=== PATIENT | male | born 1950 | race Caucasian/White ===

== ENCOUNTER 2021-02-19 12:57 | Inpatient (IN) | payer MEDICARE ==
[2021-02-19 17:21] VITALS: BMI 22.9
[2021-02-19] MEDS ORDERED: traMADol HCl 50 MG TAB PO PRN (17:34)
[2021-02-19] MEDS ORDERED: Nystatin Powder 15 GM BOT TOP PRN (18:02)
[2021-02-19] MEDS ORDERED: Ondansetron ODT 4 MG TAB PO PRN (18:52)
[2021-02-19] MEDS ORDERED: [UNRECOGNIZED DRUG - OTHER] PO PRN (18:55)
[2021-02-19] MEDS: SODIUM CHLORIDE 5% EA EYE SCH (22:15)
[2021-02-19] MEDS: Carvedilol 3.125 MG TAB PO SCH (22:15)
[2021-02-19] MEDS: Tamsulosin HCl 0.4 MG CAP PO SCH (22:15)
[2021-02-19] MEDS: [UNRECOGNIZED DRUG - OTHER] EA EYE SCH (22:15)
[2021-02-19] MEDS: Benzonatate 100 MG CAP PO PRN (22:17)
[2021-02-19] MEDS: tiZANidine HCl 4 MG TAB PO PRN (22:32)
[2021-02-20] MEDS: SODIUM CHLORIDE 5% EA EYE SCH ×4 (08:11→20:13)
[2021-02-20] MEDS: Carvedilol 3.125 MG TAB PO SCH ×2 (08:11→20:13)
[2021-02-20] MEDS: Losartan Potassium 50 MG TAB PO SCH (08:11)
[2021-02-20] MEDS: Multivit, Therapeutic 1 TAB PO SCH (08:11)
[2021-02-20] MEDS: [UNRECOGNIZED DRUG - OTHER] EA EYE SCH ×4 (08:11→20:13)
[2021-02-20] MEDS: predniSONE 5 MG TAB PO SCH (08:11)
[2021-02-20] MEDS: tiZANidine HCl 4 MG TAB PO PRN (08:27)
[2021-02-20 16:27] LABS: Hemoglobin 8.2 g/dL (14.0-18.0); Platelet Count 313 thou/uL (130-400)
[2021-02-20 16:38] LABS: Calc. Creatinine Clearance 93 mL/min (70-130)
[2021-02-20] MEDS ORDERED: Enoxaparin Sodium 40 MG/0.4 ML SYRINGE SC SCH (16:45)
[2021-02-20] MEDS: Acetaminophen 325 MG TAB PO PRN (17:08)
[2021-02-20] MEDS: Tamsulosin HCl 0.4 MG CAP PO SCH (20:13)
[2021-02-21] MEDS: predniSONE 5 MG TAB PO SCH (09:59)
[2021-02-21] MEDS: Losartan Potassium 50 MG TAB PO SCH (09:59)
[2021-02-21] MEDS: Enoxaparin Sodium 40 MG/0.4 ML SYRINGE SC SCH (09:59)
[2021-02-21] MEDS: Multivit, Therapeutic 1 TAB PO SCH (09:59)
[2021-02-21] MEDS: Carvedilol 3.125 MG TAB PO SCH ×2 (09:59→20:04)
[2021-02-21] MEDS: SODIUM CHLORIDE 5% EA EYE SCH ×4 (10:00→20:04)
[2021-02-21] MEDS: [UNRECOGNIZED DRUG - OTHER] EA EYE SCH ×4 (10:00→20:04)
[2021-02-21] MEDS: Albuterol 200 PUFF (6.7GM INHALER) INH PRN (16:22)
[2021-02-21] MEDS: Tamsulosin HCl 0.4 MG CAP PO SCH (20:04)
[2021-02-21] MEDS: Benzonatate 100 MG CAP PO PRN (20:42)
[2021-02-21] MEDS: Acetaminophen 325 MG TAB PO PRN (20:42)
[2021-02-22] MEDS: Multivit, Therapeutic 1 TAB PO SCH (09:14)
[2021-02-22] MEDS: Losartan Potassium 50 MG TAB PO SCH (09:14)
[2021-02-22] MEDS: Carvedilol 3.125 MG TAB PO SCH ×2 (09:14→20:27)
[2021-02-22] MEDS: Albuterol 200 PUFF (6.7GM INHALER) INH PRN ×2 (09:14→18:21)
[2021-02-22] MEDS: Enoxaparin Sodium 40 MG/0.4 ML SYRINGE SC SCH (09:15)
[2021-02-22] MEDS: [UNRECOGNIZED DRUG - OTHER] EA EYE SCH ×4 (09:15→20:30)
[2021-02-22] MEDS: SODIUM CHLORIDE 5% EA EYE SCH ×4 (09:15→20:30)
[2021-02-22] MEDS: predniSONE 5 MG TAB PO SCH (09:15)
[2021-02-22] MEDS: Tamsulosin HCl 0.4 MG CAP PO SCH (20:27)
[2021-02-22] MEDS: Acetaminophen 325 MG TAB PO PRN (20:27)
[2021-02-22] MEDS: Benzonatate 100 MG CAP PO PRN (20:27)
[2021-02-23 05:10] LABS: Calc. Creatinine Clearance 95 mL/min (70-130)
[2021-02-23 06:38] LABS: Eosinophils 5 % (0-10); Hemoglobin 8.3 g/dL (14.0-18.0); Lymphocytes 36 % (21-51); MDiff Complete? YES; Mean Corpuscular HGB CONC 32.6 g/dL (32.0-36.0); Mean Corpuscular Hemoglobin 29.7 pg (27.0-31.0); Mean Platelet Volume 5.9 fL (7.4-10.4); Monocytes 15 % (0-10); Neutrophil 43 % (42-75); Platelet Count 353 thou/uL (130-400); RBC Distribution Width 13.2 % (11.5-14.5); Red Blood Cell (RBC) Count 2.81 mill/uL (4.70-6.10); White Blood Cell (WBC) Count 3.9 thou/uL (4.8-10.8)
[2021-02-23] MEDS: Carvedilol 3.125 MG TAB PO SCH ×2 (10:06→20:42)
[2021-02-23] MEDS: Albuterol 200 PUFF (6.7GM INHALER) INH PRN (10:06)
[2021-02-23] MEDS: Losartan Potassium 50 MG TAB PO SCH (10:06)
[2021-02-23] MEDS: predniSONE 5 MG TAB PO SCH (10:06)
[2021-02-23] MEDS: [UNRECOGNIZED DRUG - OTHER] EA EYE SCH ×4 (10:07→20:43)
[2021-02-23] MEDS: SODIUM CHLORIDE 5% EA EYE SCH ×4 (10:07→20:43)
[2021-02-23] MEDS: Enoxaparin Sodium 40 MG/0.4 ML SYRINGE SC SCH (10:11)
[2021-02-23] MEDS: Multivit, Therapeutic 1 TAB PO SCH (10:11)
[2021-02-23] MEDS: Acetaminophen 325 MG TAB PO PRN (17:51)
[2021-02-23] MEDS: Tamsulosin HCl 0.4 MG CAP PO SCH (20:42)
[2021-02-24] MEDS: Acetaminophen 325 MG TAB PO PRN (03:51)
[2021-02-24] MEDS: Enoxaparin Sodium 40 MG/0.4 ML SYRINGE SC SCH (09:06)
[2021-02-24] MEDS: Losartan Potassium 50 MG TAB PO SCH (09:07)
[2021-02-24] MEDS: Carvedilol 3.125 MG TAB PO SCH ×2 (09:07→20:56)
[2021-02-24] MEDS: predniSONE 5 MG TAB PO SCH (09:08)
[2021-02-24] MEDS: Multivit, Therapeutic 1 TAB PO SCH (09:08)
[2021-02-24] MEDS: Albuterol 200 PUFF (6.7GM INHALER) INH PRN (09:10)
[2021-02-24] MEDS: [UNRECOGNIZED DRUG - OTHER] EA EYE SCH ×4 (09:11→20:56)
[2021-02-24] MEDS: SODIUM CHLORIDE 5% EA EYE SCH ×4 (09:11→20:56)
[2021-02-24] MEDS: Tamsulosin HCl 0.4 MG CAP PO SCH (20:57)
[2021-02-25] MEDS: Carvedilol 3.125 MG TAB PO SCH ×2 (09:50→21:05)
[2021-02-25] MEDS: SODIUM CHLORIDE 5% EA EYE SCH ×4 (09:50→21:04)
[2021-02-25] MEDS: predniSONE 5 MG TAB PO SCH (09:50)
[2021-02-25] MEDS: Enoxaparin Sodium 40 MG/0.4 ML SYRINGE SC SCH (09:50)
[2021-02-25] MEDS: Multivit, Therapeutic 1 TAB PO SCH (09:50)
[2021-02-25] MEDS: [UNRECOGNIZED DRUG - OTHER] EA EYE SCH ×4 (09:50→21:04)
[2021-02-25] MEDS: Losartan Potassium 50 MG TAB PO SCH (09:50)
[2021-02-25] MEDS: Tamsulosin HCl 0.4 MG CAP PO SCH (21:04)
[2021-02-26 05:04] LABS: Hemoglobin 8.6 g/dL (14.0-18.0); Platelet Count 389 thou/uL (130-400)
[2021-02-26 05:06] LABS: Calc. Creatinine Clearance 98 mL/min (70-130)
[2021-02-26] MEDS: Enoxaparin Sodium 40 MG/0.4 ML SYRINGE SC SCH (09:08)
[2021-02-26] MEDS: predniSONE 5 MG TAB PO SCH (09:08)
[2021-02-26] MEDS: Albuterol 200 PUFF (6.7GM INHALER) INH PRN (09:08)
[2021-02-26] MEDS: SODIUM CHLORIDE 5% EA EYE SCH ×4 (09:09→20:47)
[2021-02-26] MEDS: Losartan Potassium 50 MG TAB PO SCH (09:09)
[2021-02-26] MEDS: Carvedilol 3.125 MG TAB PO SCH ×2 (09:09→20:47)
[2021-02-26] MEDS: [UNRECOGNIZED DRUG - OTHER] EA EYE SCH ×4 (09:09→20:47)
[2021-02-26] MEDS: Multivit, Therapeutic 1 TAB PO SCH (09:09)
[2021-02-26] MEDS: Tamsulosin HCl 0.4 MG CAP PO SCH (20:47)
[2021-02-26] MEDS: Acetaminophen 325 MG TAB PO PRN (20:56)
[2021-02-27] MEDS: predniSONE 5 MG TAB PO SCH (09:21)
[2021-02-27] MEDS: Multivit, Therapeutic 1 TAB PO SCH (09:21)
[2021-02-27] MEDS: Enoxaparin Sodium 40 MG/0.4 ML SYRINGE SC SCH (09:22)
[2021-02-27] MEDS: Losartan Potassium 50 MG TAB PO SCH (09:22)
[2021-02-27] MEDS: SODIUM CHLORIDE 5% EA EYE SCH ×4 (09:23→20:30)
[2021-02-27] MEDS: [UNRECOGNIZED DRUG - OTHER] EA EYE SCH ×4 (09:23→20:30)
[2021-02-27] MEDS: Carvedilol 3.125 MG TAB PO SCH ×2 (09:23→20:30)
[2021-02-27] MEDS: Albuterol 200 PUFF (6.7GM INHALER) INH PRN ×2 (09:24→17:07)
[2021-02-27] MEDS: Tamsulosin HCl 0.4 MG CAP PO SCH (20:30)
[2021-02-27] MEDS: Acetaminophen 325 MG TAB PO PRN (20:30)
[2021-02-28] MEDS: Losartan Potassium 50 MG TAB PO SCH (09:32)
[2021-02-28] MEDS: Carvedilol 3.125 MG TAB PO SCH ×2 (09:32→20:51)
[2021-02-28] MEDS: predniSONE 5 MG TAB PO SCH (09:32)
[2021-02-28] MEDS: Multivit, Therapeutic 1 TAB PO SCH (09:32)
[2021-02-28] MEDS: Enoxaparin Sodium 40 MG/0.4 ML SYRINGE SC SCH (09:32)
[2021-02-28] MEDS: [UNRECOGNIZED DRUG - OTHER] EA EYE SCH ×4 (09:33→20:51)
[2021-02-28] MEDS: SODIUM CHLORIDE 5% EA EYE SCH ×4 (09:33→20:51)
[2021-02-28] MEDS: Albuterol 200 PUFF (6.7GM INHALER) INH PRN (09:33)
[2021-02-28] MEDS: tiZANidine HCl 4 MG TAB PO PRN ×2 (12:22→19:18)
[2021-02-28] MEDS: Tamsulosin HCl 0.4 MG CAP PO SCH (20:51)
[2021-02-28] MEDS: Acetaminophen 325 MG TAB PO PRN (20:57)
[2021-03-01 05:56] LABS: Hemoglobin 8.5 g/dL (14.0-18.0); Mean Corpuscular Hemoglobin 29.1 pg (27.0-31.0); Mean Corpuscular Volume 88.4 fL (78.0-98.0); Mean Platelet Volume 5.7 fL (7.4-10.4); Platelet Count 363 thou/uL (130-400); RBC Distribution Width 13.2 % (11.5-14.5); Red Blood Cell (RBC) Count 2.91 mill/uL (4.70-6.10); White Blood Cell (WBC) Count 2.9 thou/uL (4.8-10.8)
[2021-03-01 05:59] LABS: ALT (SGPT) 17 U/L (8-55); AST (SGOT) 13 U/L (5-34); Alkaline Phosphatase 77 U/L (40-110); Anion Gap 13 mmol/L (10-20); BUN (Urea Nitrogen) 12 mg/dL (8.4-25.7); Bilirubin, Total Less than 0.2 mg/dL (0.2-1.2); Calc. Creatinine Clearance 95 mL/min (70-130); Calcium 8.8 mg/dL (7.8-10.44); Carbon Dioxide 24 mmol/L (23-31); Chloride 106 mmol/L (98-107); Globulin 3.6 g/dL (2.4-3.5); Glucose 123 mg/dL (83-110); Potassium 3.8 mmol/L (3.5-5.1); Protein, Total 6.6 g/dL (5.8-8.1); Sodium 139 mmol/L (136-145)
[2021-03-01 06:29] LABS: Band 1 % (5-11); Eosinophils 1 % (0-10); Lymphocytes 41 % (21-51); MDiff Complete? YES; Monocytes 21 % (0-10); Neutrophil 36 % (42-75); Platelet Morphology Comment Appears Adequate; RBC Morphology Normal
[2021-03-01] MEDS: Enoxaparin Sodium 40 MG/0.4 ML SYRINGE SC SCH (09:04)
[2021-03-01] MEDS: Multivit, Therapeutic 1 TAB PO SCH (09:05)
[2021-03-01] MEDS: predniSONE 5 MG TAB PO SCH (09:05)
[2021-03-01] MEDS: Carvedilol 3.125 MG TAB PO SCH ×2 (09:05→21:52)
[2021-03-01] MEDS: SODIUM CHLORIDE 5% EA EYE SCH ×4 (09:05→21:52)
[2021-03-01] MEDS: Losartan Potassium 50 MG TAB PO SCH (09:05)
[2021-03-01] MEDS: [UNRECOGNIZED DRUG - OTHER] EA EYE SCH ×4 (09:05→21:52)
[2021-03-01] MEDS: Albuterol 200 PUFF (6.7GM INHALER) INH PRN (09:06)
[2021-03-01] MEDS: Acetaminophen 325 MG TAB PO PRN (09:14)
[2021-03-01 11:33] LABS: Hemoglobin A1c 5.5 % (4.0-6.0)
[2021-03-01 17:53] LABS: Platelet Count 452 thou/uL (130-400)
[2021-03-01] MEDS: Tamsulosin HCl 0.4 MG CAP PO SCH (21:52)
[2021-03-02] MEDS: Enoxaparin Sodium 40 MG/0.4 ML SYRINGE SC SCH (08:26)
[2021-03-02] MEDS: Losartan Potassium 50 MG TAB PO SCH (08:26)
[2021-03-02] MEDS: Carvedilol 3.125 MG TAB PO SCH ×2 (08:27→20:52)
[2021-03-02] MEDS: predniSONE 5 MG TAB PO SCH (08:27)
[2021-03-02] MEDS: Multivit, Therapeutic 1 TAB PO SCH (08:27)
[2021-03-02] MEDS: [UNRECOGNIZED DRUG - OTHER] EA EYE SCH ×4 (08:30→20:52)
[2021-03-02] MEDS: SODIUM CHLORIDE 5% EA EYE SCH ×4 (08:30→20:52)
[2021-03-02] MEDS: Albuterol 200 PUFF (6.7GM INHALER) INH PRN (08:30)
[2021-03-02] MEDS ORDERED: traMADol HCl 50 MG TAB PO PRN (17:50)
[2021-03-02] MEDS: Tamsulosin HCl 0.4 MG CAP PO SCH (20:52)
[2021-03-03] MEDS: [UNRECOGNIZED DRUG - OTHER] EA EYE SCH ×4 (09:19→21:22)
[2021-03-03] MEDS: Losartan Potassium 50 MG TAB PO SCH (09:19)
[2021-03-03] MEDS: SODIUM CHLORIDE 5% EA EYE SCH ×4 (09:19→21:22)
[2021-03-03] MEDS: Multivit, Therapeutic 1 TAB PO SCH (09:20)
[2021-03-03] MEDS: Carvedilol 3.125 MG TAB PO SCH ×2 (09:20→21:22)
[2021-03-03] MEDS: predniSONE 5 MG TAB PO SCH (09:20)
[2021-03-03] MEDS: Albuterol 200 PUFF (6.7GM INHALER) INH PRN (09:21)
[2021-03-03] MEDS: Enoxaparin Sodium 40 MG/0.4 ML SYRINGE SC SCH (09:21)
[2021-03-03] MEDS: Acetaminophen 325 MG TAB PO PRN (12:33)
[2021-03-03] MEDS: Tamsulosin HCl 0.4 MG CAP PO SCH (21:21)
[2021-03-04 05:05] LABS: Anion Gap 14 mmol/L (10-20); BUN (Urea Nitrogen) 16 mg/dL (8.4-25.7); Calc. Creatinine Clearance 93 mL/min (70-130); Calcium 8.2 mg/dL (7.8-10.44); Carbon Dioxide 22 mmol/L (23-31); Chloride 108 mmol/L (98-107); Glucose 86 mg/dL (83-110); Potassium 3.9 mmol/L (3.5-5.1); Sodium 140 mmol/L (136-145)
[2021-03-04 05:38] LABS: Eosinophils 6 % (0-10); Hemoglobin 8.4 g/dL (14.0-18.0); Lymphocytes 28 % (21-51); MDiff Complete? YES; Mean Corpuscular HGB CONC 32.2 g/dL (32.0-36.0); Mean Corpuscular Hemoglobin 28.9 pg (27.0-31.0); Mean Corpuscular Volume 89.7 fL (78.0-98.0); Mean Platelet Volume 5.7 fL (7.4-10.4); Monocytes 8 % (0-10); Neutrophil 57 % (42-75); Platelet Count 314 thou/uL (130-400); Platelet Morphology Comment Appears Adequate; RBC Distribution Width 13.1 % (11.5-14.5); RBC Morphology Normal; Red Blood Cell (RBC) Count 2.89 mill/uL (4.70-6.10)
[2021-03-04] MEDS: Enoxaparin Sodium 40 MG/0.4 ML SYRINGE SC SCH (10:14)
[2021-03-04] MEDS: Losartan Potassium 50 MG TAB PO SCH (10:15)
[2021-03-04] MEDS: predniSONE 5 MG TAB PO SCH (10:15)
[2021-03-04] MEDS: Multivit, Therapeutic 1 TAB PO SCH (10:15)
[2021-03-04] MEDS: Carvedilol 3.125 MG TAB PO SCH ×2 (10:16→20:27)
[2021-03-04] MEDS: Acetaminophen 325 MG TAB PO PRN (10:17)
[2021-03-04] MEDS: [UNRECOGNIZED DRUG - OTHER] EA EYE SCH ×4 (10:26→20:27)
[2021-03-04] MEDS: SODIUM CHLORIDE 5% EA EYE SCH ×4 (10:26→20:27)
[2021-03-04] MEDS: Tamsulosin HCl 0.4 MG CAP PO SCH (20:27)
[2021-03-05] MEDS: Multivit, Therapeutic 1 TAB PO SCH (10:32)
[2021-03-05] MEDS: predniSONE 5 MG TAB PO SCH (10:33)
[2021-03-05] MEDS: Carvedilol 3.125 MG TAB PO SCH ×2 (10:33→20:46)
[2021-03-05] MEDS: Losartan Potassium 50 MG TAB PO SCH (10:33)
[2021-03-05] MEDS: Enoxaparin Sodium 40 MG/0.4 ML SYRINGE SC SCH (10:34)
[2021-03-05] MEDS: SODIUM CHLORIDE 5% EA EYE SCH ×4 (10:36→20:46)
[2021-03-05] MEDS: [UNRECOGNIZED DRUG - OTHER] EA EYE SCH ×4 (10:36→20:46)
[2021-03-05] MEDS: Acetaminophen 325 MG TAB PO PRN (10:45)
[2021-03-05] MEDS: Calcium Carbonate 500 MG TAB PO SCH (17:21)
[2021-03-05] MEDS: Tamsulosin HCl 0.4 MG CAP PO SCH (20:46)
[2021-03-05] MEDS: Atorvastatin Calcium 40 MG TAB PO SCH (20:46)
[2021-03-06] MEDS: Enoxaparin Sodium 40 MG/0.4 ML SYRINGE SC SCH (08:58)
[2021-03-06] MEDS: Carvedilol 3.125 MG TAB PO SCH ×2 (08:59→21:20)
[2021-03-06] MEDS: Losartan Potassium 50 MG TAB PO SCH (08:59)
[2021-03-06] MEDS: Multivit, Therapeutic 1 TAB PO SCH (08:59)
[2021-03-06] MEDS: Calcium Carbonate 500 MG TAB PO SCH ×2 (08:59→17:20)
[2021-03-06] MEDS: predniSONE 5 MG TAB PO SCH (08:59)
[2021-03-06] MEDS: [UNRECOGNIZED DRUG - OTHER] EA EYE SCH ×4 (09:01→21:22)
[2021-03-06] MEDS: SODIUM CHLORIDE 5% EA EYE SCH ×4 (09:01→21:22)
[2021-03-06] MEDS: Tamsulosin HCl 0.4 MG CAP PO SCH (21:20)
[2021-03-06] MEDS: Oxybutynin 5 MG TAB PO SCH (21:20)
[2021-03-06] MEDS: Atorvastatin Calcium 40 MG TAB PO SCH (21:21)
[2021-03-07 04:42] LABS: Hemoglobin 8.5 g/dL (14.0-18.0); Platelet Count 271 thou/uL (130-400)
[2021-03-07 05:01] LABS: Calc. Creatinine Clearance 106 mL/min (70-130)
[2021-03-07] MEDS: Losartan Potassium 50 MG TAB PO SCH (09:40)
[2021-03-07] MEDS: Carvedilol 3.125 MG TAB PO SCH ×2 (09:40→20:39)
[2021-03-07] MEDS: Enoxaparin Sodium 40 MG/0.4 ML SYRINGE SC SCH (09:40)
[2021-03-07] MEDS: Oxybutynin 5 MG TAB PO SCH ×2 (09:42→20:39)
[2021-03-07] MEDS: predniSONE 5 MG TAB PO SCH (09:42)
[2021-03-07] MEDS: Calcium Carbonate 500 MG TAB PO SCH ×2 (09:42→17:33)
[2021-03-07] MEDS: Multivit, Therapeutic 1 TAB PO SCH (09:42)
[2021-03-07] MEDS: SODIUM CHLORIDE 5% EA EYE SCH ×4 (09:43→20:39)
[2021-03-07] MEDS: [UNRECOGNIZED DRUG - OTHER] EA EYE SCH ×4 (09:43→20:39)
[2021-03-07] MEDS: Acetaminophen 325 MG TAB PO PRN (12:00)
[2021-03-07] MEDS: Atorvastatin Calcium 40 MG TAB PO SCH (20:39)
[2021-03-07] MEDS: Tamsulosin HCl 0.4 MG CAP PO SCH (20:39)
[2021-03-08] MEDS: Multivit, Therapeutic 1 TAB PO SCH (09:10)
[2021-03-08] MEDS: predniSONE 5 MG TAB PO SCH (09:11)
[2021-03-08] MEDS: SODIUM CHLORIDE 5% EA EYE SCH ×4 (09:11→20:51)
[2021-03-08] MEDS: Losartan Potassium 50 MG TAB PO SCH (09:11)
[2021-03-08] MEDS: Enoxaparin Sodium 40 MG/0.4 ML SYRINGE SC SCH (09:11)
[2021-03-08] MEDS: Calcium Carbonate 500 MG TAB PO SCH ×2 (09:11→17:55)
[2021-03-08] MEDS: Oxybutynin 5 MG TAB PO SCH ×2 (09:11→20:51)
[2021-03-08] MEDS: Carvedilol 3.125 MG TAB PO SCH ×2 (09:11→17:56)
[2021-03-08] MEDS: [UNRECOGNIZED DRUG - OTHER] EA EYE SCH ×4 (09:11→20:51)
[2021-03-08] MEDS: Tamsulosin HCl 0.4 MG CAP PO SCH (20:51)
[2021-03-08] MEDS: Atorvastatin Calcium 40 MG TAB PO SCH (20:51)
[2021-03-09] MEDS: Losartan Potassium 50 MG TAB PO SCH (09:16)
[2021-03-09] MEDS: Multivit, Therapeutic 1 TAB PO SCH (09:16)
[2021-03-09] MEDS: Oxybutynin 5 MG TAB PO SCH ×2 (09:16→20:37)
[2021-03-09] MEDS: Calcium Carbonate 500 MG TAB PO SCH ×2 (09:17→18:19)
[2021-03-09] MEDS: predniSONE 5 MG TAB PO SCH (09:17)
[2021-03-09] MEDS: Carvedilol 3.125 MG TAB PO SCH ×2 (09:17→20:36)
[2021-03-09] MEDS: Enoxaparin Sodium 40 MG/0.4 ML SYRINGE SC SCH (09:17)
[2021-03-09] MEDS: SODIUM CHLORIDE 5% EA EYE SCH ×4 (09:18→20:37)
[2021-03-09] MEDS: [UNRECOGNIZED DRUG - OTHER] EA EYE SCH ×4 (09:18→20:37)
[2021-03-09] MEDS: Acetaminophen 325 MG TAB PO PRN ×2 (10:30→15:16)
[2021-03-09] MEDS: Atorvastatin Calcium 40 MG TAB PO SCH (20:37)
[2021-03-09] MEDS: Tamsulosin HCl 0.4 MG CAP PO SCH (20:37)
[2021-03-10 05:14] LABS: Hemoglobin 8.1 g/dL (14.0-18.0); Platelet Count 230 thou/uL (130-400)
[2021-03-10 05:54] LABS: Calc. Creatinine Clearance 102 mL/min (70-130)
[2021-03-10] MEDS: Acetaminophen 325 MG TAB PO PRN ×3 (07:58→21:22)
[2021-03-10] MEDS: Multivit, Therapeutic 1 TAB PO SCH (07:59)
[2021-03-10] MEDS: Oxybutynin 5 MG TAB PO SCH ×2 (07:59→21:17)
[2021-03-10] MEDS: predniSONE 5 MG TAB PO SCH (08:00)
[2021-03-10] MEDS: Losartan Potassium 50 MG TAB PO SCH (08:00)
[2021-03-10] MEDS: Calcium Carbonate 500 MG TAB PO SCH ×2 (08:00→17:16)
[2021-03-10] MEDS: Carvedilol 3.125 MG TAB PO SCH ×2 (08:00→21:18)
[2021-03-10] MEDS: Enoxaparin Sodium 40 MG/0.4 ML SYRINGE SC SCH (08:02)
[2021-03-10] MEDS: SODIUM CHLORIDE 5% EA EYE SCH ×4 (08:03→21:18)
[2021-03-10] MEDS: [UNRECOGNIZED DRUG - OTHER] EA EYE SCH ×4 (08:03→21:18)
[2021-03-10] MEDS: Tamsulosin HCl 0.4 MG CAP PO SCH (21:17)
[2021-03-10] MEDS: Atorvastatin Calcium 40 MG TAB PO SCH (21:17)
[2021-03-11 07:49] LABS: #Basophils 0.1 thou/uL (0.0-0.2); #Eosinphils 0.4 thou/uL (0.0-0.7); #Lymphocytes 1.5 thou/uL (1.20-3.40); #Monocytes 0.5 thou/uL (0.11-0.59); #Neutrophils 2.9 thou/uL (1.40-6.50); %Basophils 1.2 % (0.0-1.0); %Monocytes 8.7 % (0.0-10.0); %Neutrophils 55.1 % (42.0-75.0); Hemoglobin 8.4 g/dL (14.0-18.0); Mean Corpuscular HGB CONC 32.7 g/dL (32.0-36.0); Mean Corpuscular Hemoglobin 29.1 pg (27.0-31.0); Mean Corpuscular Volume 88.8 fL (78.0-98.0); Mean Platelet Volume 6.1 fL (7.4-10.4); Platelet Count 244 thou/uL (130-400); RBC Distribution Width 13.9 % (11.5-14.5); Red Blood Cell (RBC) Count 2.87 mill/uL (4.70-6.10); White Blood Cell (WBC) Count 5.3 thou/uL (4.8-10.8)
[2021-03-11 08:04] LABS: ALT (SGPT) 16 U/L (8-55); AST (SGOT) 12 U/L (5-34); Albumin 3.2 g/dL (3.4-4.8); Alkaline Phosphatase 69 U/L (40-110); Anion Gap 13 mmol/L (10-20); BUN (Urea Nitrogen) 9 mg/dL (8.4-25.7); Bilirubin, Total 0.2 mg/dL (0.2-1.2); Calc. Creatinine Clearance 103 mL/min (70-130); Calcium 9.1 mg/dL (7.8-10.44); Carbon Dioxide 24 mmol/L (23-31); Chloride 108 mmol/L (98-107); Globulin 3.5 g/dL (2.4-3.5); Glucose 88 mg/dL (83-110); Protein, Total 6.7 g/dL (5.8-8.1); Sodium 141 mmol/L (136-145)
[2021-03-11] MEDS: [UNRECOGNIZED DRUG - OTHER] EA EYE SCH ×4 (09:19→20:30)
[2021-03-11] MEDS: SODIUM CHLORIDE 5% EA EYE SCH ×4 (09:19→20:30)
[2021-03-11] MEDS: Calcium Carbonate 500 MG TAB PO SCH ×2 (09:20→18:34)
[2021-03-11] MEDS: predniSONE 5 MG TAB PO SCH (09:20)
[2021-03-11] MEDS: Multivit, Therapeutic 1 TAB PO SCH (09:20)
[2021-03-11] MEDS: Enoxaparin Sodium 40 MG/0.4 ML SYRINGE SC SCH (09:20)
[2021-03-11] MEDS: Oxybutynin 5 MG TAB PO SCH ×2 (09:20→20:30)
[2021-03-11] MEDS: Losartan Potassium 50 MG TAB PO SCH (09:21)
[2021-03-11] MEDS: Carvedilol 3.125 MG TAB PO SCH ×2 (09:23→20:30)
[2021-03-11] MEDS ORDERED: FLU VACC QS2021-22(65YR UP)/PF 240 MCG/0.7 ML SYRINGE IM ONE (10:00)
[2021-03-11] MEDS ORDERED: traMADol HCl 50 MG TAB PO PRN (14:04)
[2021-03-11] MEDS: Tamsulosin HCl 0.4 MG CAP PO SCH (20:30)
[2021-03-11] MEDS: Atorvastatin Calcium 40 MG TAB PO SCH (20:30)
[2021-03-12] MEDS: Losartan Potassium 50 MG TAB PO SCH (08:40)
[2021-03-12] MEDS: predniSONE 5 MG TAB PO SCH (08:40)
[2021-03-12] MEDS: Carvedilol 3.125 MG TAB PO SCH ×2 (08:40→21:44)
[2021-03-12] MEDS: Multivit, Therapeutic 1 TAB PO SCH (08:40)
[2021-03-12] MEDS: Calcium Carbonate 500 MG TAB PO SCH ×2 (08:40→17:19)
[2021-03-12] MEDS: Enoxaparin Sodium 40 MG/0.4 ML SYRINGE SC SCH (08:41)
[2021-03-12] MEDS: Oxybutynin 5 MG TAB PO SCH ×2 (08:41→21:44)
[2021-03-12] MEDS: SODIUM CHLORIDE 5% EA EYE SCH ×4 (08:51→21:43)
[2021-03-12] MEDS: [UNRECOGNIZED DRUG - OTHER] EA EYE SCH ×4 (08:51→21:43)
[2021-03-12] MEDS: Acetaminophen 325 MG TAB PO PRN (15:19)
[2021-03-12] MEDS: Atorvastatin Calcium 40 MG TAB PO SCH (21:44)
[2021-03-12] MEDS: Tamsulosin HCl 0.4 MG CAP PO SCH (21:44)
[2021-03-13 04:54] LABS: Calc. Creatinine Clearance 99 mL/min (70-130)
[2021-03-13 04:57] LABS: Hemoglobin 8.5 g/dL (14.0-18.0); Platelet Count 226 thou/uL (130-400)
[2021-03-13] MEDS: Multivit, Therapeutic 1 TAB PO SCH (08:18)
[2021-03-13] MEDS: Enoxaparin Sodium 40 MG/0.4 ML SYRINGE SC SCH (08:18)
[2021-03-13] MEDS: predniSONE 5 MG TAB PO SCH (08:19)
[2021-03-13] MEDS: Losartan Potassium 50 MG TAB PO SCH (08:19)
[2021-03-13] MEDS: Carvedilol 3.125 MG TAB PO SCH ×2 (08:20→20:56)
[2021-03-13] MEDS: SODIUM CHLORIDE 5% EA EYE SCH ×4 (08:20→20:58)
[2021-03-13] MEDS: [UNRECOGNIZED DRUG - OTHER] EA EYE SCH ×4 (08:20→20:58)
[2021-03-13] MEDS: Albuterol 200 PUFF (6.7GM INHALER) INH PRN ×2 (08:20→17:37)
[2021-03-13] MEDS: Calcium Carbonate 500 MG TAB PO SCH ×2 (08:20→17:35)
[2021-03-13] MEDS: Oxybutynin 5 MG TAB PO SCH ×2 (08:20→20:57)
[2021-03-13] MEDS: Atorvastatin Calcium 40 MG TAB PO SCH (20:57)
[2021-03-13] MEDS: Tamsulosin HCl 0.4 MG CAP PO SCH (20:57)
[2021-03-14] MEDS: SODIUM CHLORIDE 5% EA EYE SCH ×4 (09:58→20:32)
[2021-03-14] MEDS: Enoxaparin Sodium 40 MG/0.4 ML SYRINGE SC SCH (09:58)
[2021-03-14] MEDS: [UNRECOGNIZED DRUG - OTHER] EA EYE SCH ×4 (09:58→20:32)
[2021-03-14] MEDS: Multivit, Therapeutic 1 TAB PO SCH (09:59)
[2021-03-14] MEDS: Losartan Potassium 50 MG TAB PO SCH (09:59)
[2021-03-14] MEDS: Calcium Carbonate 500 MG TAB PO SCH ×2 (09:59→17:22)
[2021-03-14] MEDS: Oxybutynin 5 MG TAB PO SCH ×2 (09:59→20:26)
[2021-03-14] MEDS: predniSONE 5 MG TAB PO SCH (09:59)
[2021-03-14] MEDS: Carvedilol 3.125 MG TAB PO SCH ×2 (10:01→20:26)
[2021-03-14] MEDS: Acetaminophen 325 MG TAB PO PRN (11:15)
[2021-03-14] MEDS: Atorvastatin Calcium 40 MG TAB PO SCH (20:26)
[2021-03-14] MEDS: Tamsulosin HCl 0.4 MG CAP PO SCH (20:26)
[2021-03-15] MEDS: Losartan Potassium 50 MG TAB PO SCH (09:17)
[2021-03-15] MEDS: Calcium Carbonate 500 MG TAB PO SCH (09:17)
[2021-03-15] MEDS: predniSONE 5 MG TAB PO SCH (09:17)
[2021-03-15] MEDS: Multivit, Therapeutic 1 TAB PO SCH (09:17)
[2021-03-15] MEDS: Carvedilol 3.125 MG TAB PO SCH (09:18)
[2021-03-15] MEDS: SODIUM CHLORIDE 5% EA EYE SCH ×2 (09:18→12:32)
[2021-03-15] MEDS: Oxybutynin 5 MG TAB PO SCH (09:18)
[2021-03-15] MEDS: [UNRECOGNIZED DRUG - OTHER] EA EYE SCH ×2 (09:18→12:32)
[2021-03-15] MEDS: Enoxaparin Sodium 40 MG/0.4 ML SYRINGE SC SCH (09:20)
[2021-03-15 12:45] VITALS: BP 129/65; TEMP 98.9
== END 2021-03-15 13:33 | disposition home health service (06) | DRG 948 ==
LOC: BURMED 16:47
PROVIDERS: ADMIT Family Medicine; ATTEND Family Medicine
PROC: 8E0ZXY6 Isolation (ICD-10-PCS; principal; 2021-02-19)
DX: R53.83 Other fatigue (principal); I50.42 Chronic combined systolic (congestive) and diastolic (congestive) heart failure; I42.9 Cardiomyopathy, unspecified; B37.89 Other sites of candidiasis; U09.9 Post COVID-19 condition, unspecified; C61 Malignant neoplasm of prostate; I11.0 Hypertensive heart disease with heart failure; E78.5 Hyperlipidemia, unspecified; Z96.1 Presence of intraocular lens; R33.9 Retention of urine, unspecified; Z98.49 Cataract extraction status, unspecified eye; Z98.52 Vasectomy status; Z98.41 Cataract extraction status, right eye; Z88.8 Allergy status to other drugs, medicaments and biological substances
CPT/HCPCS: 36415; 71045; 71046; 80053; 82565; 83036; 85014; 85018; 85025; 85049; 90471; 90662; G0008; J1650; J7512